=== PATIENT | male | born 1975 | race Hispanic/Latino ===

== ENCOUNTER 2023-11-07 20:47 | Emergency (ER) | payer SELFPAY ==
[~2023-11-07] VITALS: Ht 185.4 cm; Wt 81.6 kg
[2023-11-07] MEDS ORDERED: CIPOTIC AD (21:20)
[2023-11-07] MEDS: CIPROFLOXACIN HCL 0.2%/HYDROCORT 1% 10 ML OTIC SUSP AD ONE (21:44)
[2023-11-07 21:51] VITALS: BP 132/76; PULSE 78; RESP 18; O2SAT 98
== END 2023-11-07 21:52 | disposition home or self-care (01) ==
LOC: EDH 20:47
DX: T16.1XXA Foreign body in right ear, initial encounter (principal); Z79.2 Long term (current) use of antibiotics; W44.F4XA Insect entering into or through a natural orifice, initial encounter; Y93.89 Activity, other specified; Y92.89 Other specified places as the place of occurrence of the external cause; Y99.8 Other external cause status
CPT/HCPCS: 69200